=== PATIENT | female | born 1975 | race Two or more races ===

== ENCOUNTER 2024-06-05 14:46 | Emergency (ER) | payer BC, OTHER, SELFPAY ==
[2024-06-05 14:50] VITALS: BP 135/76
[2024-06-05] MEDS: NSS 1000 IV (16:42)
[2024-06-05 16:44] VITALS: BMI 29.3
[2024-06-05 16:55] LABS: % Basophils 0.7 % (0-2); % Immature Granulocytes 0.2 % (0-0.5); % Lymphocytes 24.3 % (20.5-51.1); % Monocytes 8.6 % (1.7-9.3); % Neutrophils 59.2 % (42.2-75.2); Absolute Basophils 0.1 10^3/uL (0-0.2); Absolute Eosinophils 0.7 10^3/uL (0-0.7); Absolute Lymphocytes 2.3 10^3/uL (1.2-3.4); Absolute Monocytes 0.8 10^3/uL (0.1-0.6); Absolute Neutrophils 5.6 10^3/uL (1.4-6.5); Hematocrit 38.9 % (37.0-47.0); Hemoglobin 13.2 g/dL (12.0-16.0); Mean Corp Hgb Conc. 33.9 g/dL (33.0-37.0); Mean Corpuscular Hgb 32.5 pg (27.0-31.0); Mean Corpuscular Volume 95.8 fL (81.0-99.0); Mean Platelet Volume 11.6 fL (7.4-10.4); Nucleated Red Blood Cells % 0 %; Platelet Count 220 10^3/uL (130-400); Red Blood Cell Count 4.06 10^6/uL (4.20-5.40); Red Cell Dist. Width 13.2 % (11.5-14.5); White Blood Cell Count 9.5 10^3/uL (4.8-10.8)
[2024-06-05 17:01] VITALS: BP 117/63
[2024-06-05 17:11] LABS: ALT (SGPT) 18 U/L (0-35); AST (SGOT) 25 U/L (14-36); Albumin 4.3 g/dl (3.5-5.0); Alkaline Phosphatase 59 U/L (38-126); Blood Urea Nitrogen 15 mg/dl (7-17); Calcium 9.6 mg/dl (8.4-10.2); Carbon Dioxide 28 mmol/L (22-30); Chloride 105 mmol/L (98-107); Estimated Creatinine Clearance 118 ml/min; Glucose 102 mg/dl (70-99); Potassium 4.2 mmol/L (3.5-5.1); Sodium 139 mmol/L (135-145); Total Bilirubin 0.4 mg/dl (0.2-1.3); Total Protein 6.7 g/dl (6.3-8.2); eGFR > 60.00
[2024-06-05 17:46] VITALS: BP 112/71
--- NOTE | 2024-06-05 18:47 | ED.GENMED ---
History of Present Illness
General
Chief Complaint: Dizziness
Source: patient and spouse
Exam Limitations: none
Time Seen by Provider: 06/05/24 15:38
Nursing documentation reviewed up to this point in time: agreed with
History of Present Illness
History of Present Illness:
48-year-old female past medical history of MS presenting to the emergency department today with concerns of lightheadedness while at work felt like she was going to pass out while standing up she claims that the AC is not working and it was very
hot. She was sweating. She felt some nausea no vomiting no chest pain no shortness of breath she did have a brief episode during the lightheadedness where it felt that her heart rate was increasing..
Past History
Past History
ED Past Medical History: None; Negative Asthma, HTN, Hypercholesterolemia or NIDDM
ED Past Surgical History: Cholecystectomy
Social History
Tobacco: Other (Hookah)
Alcohol: None
Personal:
Living: with family
Employment: Employed
Review of Systems
Review of Systems
Allergies reviewed?: Yes
All Other Systems: ROS reviewed and negative except as documented in HPI and ROS
Phy Exam
Physical Exam
Physical Exam:
GENERAL: Alert , in no apparent distress
EYE: pupils equal and reactive
NECK: Supple, no significant adenopathy.
ENT: o/p clr, mmm.
CARDIAC: Regular rate and rhythm .
LUNGS: Clear breath sounds bilaterally, no acute respiratory distress, no wheezes/rales/rhonchi
ABDOMEN: Soft, without focal tenderness, no r/g, no cvat
NEUROLOGICAL: Alert and oriented, no focal neuro deficits
SKIN: Warm and dry, skin intact.
MUSCULOSKELETAL: No edema, well perfused.
PSYCH: Normal and appropriate interaction.
Course
Orders/Labs/Results
Orders:
Orders
06/05/24 14:52
Electrocardiogram (*1) Urgent
Reason for Study: Vertigo / Dizzy
EKG- Treatment ONCE
06/05/24 16:10
Urinalysis Reflex To Culture Urgent
0.9% Sodium Chloride 1000 ml [Nss] 1,000 ml IV BOLUS
06/05/24 16:41
Complete Blood Count/With Diff Urgent
Comprehensive Metabolic Panel Urgent
Abnormal Lab Results
06/05/24
16:41
RBC 4.06 L 10^6/uL
(4.20-5.40)
MCH 32.5 H pg
(27.0-31.0)
MPV 11.6 H fL
(7.4-10.4)
Absolute Monos (auto) 0.8 H 10^3/uL
(0.1-0.6)
Eosinophils % 7.0 H %
(0-6)
Glucose 102 H mg/dl
(70-99)
06/05/24 16:41
06/05/24 16:41
Vital Signs
Initial and Last Documented VS:
Initial Vital Signs
Temp Pulse Resp BP Pulse Ox
98.0 F 72 16 135/76 98
06/05/24 14:50 06/05/24 14:50 06/05/24 14:50 06/05/24 14:50 06/05/24 14:50
Last Documented Vital Signs
Temp Pulse Resp BP Pulse Ox
98.0 F 69 21 112/71 98
06/05/24 14:50 06/05/24 17:46 06/05/24 17:46 06/05/24 17:46 06/05/24 14:50
MDM/Problems Addressed
MDM/Problems Addressed:
48-year-old female presenting to the emergency department today with concerns of lightheadedness when working in a very hot room today. [place] better after sitting down and drinking some fluids. She did feel that her heart rate was elevated at the
time. She does have a loop recorder in place this was interrogated and she had a brief episode of sinus tachycardia in the 120s. No arrhythmia. On arrival here vital signs are normal patient well-appearing no acute distress normal neurologic
evaluation. Labs were obtained without acute abnormalities. Asymptomatic for multiple hours here. Stable for discharge.
*Critical Care Note
Total Time (30-74mins, 75-104mins- exclusive of procedures): Not Applicable
ED Attending Note
-
Portions of this chart may have been created with voice recognition software.� Occasional wrong word or��sound alike� substitutions may have occurred due to the inherent limitations of voice recognition software.
Discharge Plan
Departure
Patient Disposition: Home (Routine Discharge)
Date of Disposition: 06/05/24
Time of Disposition: 18:49
Patient with high blood pressure during this ER visit?: No
Condition: Good
Covid-19: Not Applicable
Discharge Problem:
Pre-syncope
Instructions: Near Fainting (DC)
Referrals:
Dione Ghotra MD [Family Provider] -
Activity Restrictions/Additional Instructions:
You came to the emergency department today after an episode of lightheadedness. Please follow closely with your primary care doctor. Return to the emergency department for any worsening, new or concerning symptoms.
Interventions
Interventions:
*Risk Screen - Suicide Last Done: 06/05/24 16:43
*General Assessment Last Done: 06/05/24 16:43
*Neglect/Abuse Screening Last Done: 06/05/24 16:43
ED- Fall Risk Assessment Last Done: 06/05/24 16:59
*ED COVID-19 Vaccine History Last Done: 06/05/24 16:43
ED- Cardiac Assessment Last Done: 06/05/24 16:59
Discharge Date and Time
Print Language: [place]
== END 2024-06-05 19:09 | disposition home or self-care (01) ==
LOC: EMR 14:46
PROVIDERS: Physician Assistant; EMERGENCY PHYSICIAN Student in an Organized Health Care Education/Training Program; FAMILY PHYSICIAN Family Medicine
DX: R55 Syncope and collapse (principal); G35 Multiple sclerosis; Z90.49 Acquired absence of other specified parts of digestive tract
CPT/HCPCS: 99283; 80053; 85025; 93005

== ENCOUNTER 2024-08-29 12:27 | Emergency (ER) | payer BC, OTHER, SELFPAY ==
[2024-08-29 12:41] VITALS: BP 141/91
--- NOTE | 2024-08-29 12:43 | ED.GENMED ---
ED Provider Triage
<Himanshu Longoria PA-C - Last Filed: 08/29/24 12:44>
-
Patient seen by provider in Triage?: Seen in Triage
Attestation: A medical screening examination has been initiated by a qualified medical provider. Based on the assessment performed at this time, it has been determined that an emergent medical condition may exist and the patient has been informed
that further medical evaluation and possible additional diagnostic testing may be needed.
HPI: 48-year-old female presents for evaluation of nontraumatic left hand and forearm discomfort. Describes a 'cold sensation' to the left thumb and proximal forearm. Denies any injuries, works at [employer]. History of factor V Leiden, denies any
arm edema
GENERAL: Alert , in no apparent distress
EYE: No visual abnormalities.
NECK: Trachea midline
ENT: No visible abnormalities.
LUNGS: No acute respiratory distress
NEUROLOGICAL: Alert and oriented
SKIN: Skin intact. No visible changes.
MUSCULOSKELETAL: Moving extremities normally
PSYCH: Normal and appropriate interaction.
A/P: Nontraumatic left hand pain. Does not fit a description of carpal tunnel. No edema to suggest DVT. Will obtain hand x-rays and reassess
This is a medical evaluation conducted in person to initiate diagnostic evaluation and provide initial therapeutics. Please see further documentation by the treating clinician.
History of Present Illness
<Himanshu Longoria PA-C - Last Filed: 08/29/24 12:44>
General
Chief Complaint: Musculo-Skeletal Complaint
Time Seen by Provider: 08/29/24 13:53
<Devonte Shannon Jr., PA-C - Last Filed: 08/29/24 18:08>
General
Source: patient
Exam Limitations: none
Nursing documentation reviewed up to this point in time: agreed with
History of Present Illness
History of Present Illness:
48-year-old female past medical history of MS presenting to the emergency department today with concerns of left hand pain starting this morning upon awakening. Denies any additional symptoms otherwise. Denies any numbness or weakness but has
noticed a hot and cold feeling intermittently. Denies any known injuries or repetitious motion
Past History
<Himanshu Longoria PA-C - Last Filed: 08/29/24 12:44>
Past History
ED Past Medical History: None; Negative Asthma, HTN, Hypercholesterolemia or NIDDM
ED Past Surgical History: Cholecystectomy
Social History
Tobacco: Other (Hookah)
Alcohol: None
Personal:
Living: with family
Employment: Employed
Review of Systems
<Devonte Shannon Jr., PA-C - Last Filed: 08/29/24 18:08>
Review of Systems
Allergies reviewed?: Yes
All Other Systems: ROS reviewed and negative except as documented in HPI and ROS
Phy Exam
<Devonte Shannon Jr., PA-C - Last Filed: 08/29/24 18:08>
Physical Exam
Physical Exam:
GENERAL: Alert , in no apparent distress
EYE: pupils equal and reactive
NECK: Supple, no significant adenopathy.
ENT: o/p clr, mmm.
CARDIAC: Regular rate and rhythm .
LUNGS: Clear breath sounds bilaterally, no acute respiratory distress, no wheezes/rales/rhonchi
ABDOMEN: Soft, without focal tenderness, no r/g, no cvat
NEUROLOGICAL: Alert and oriented, no focal neuro deficits
SKIN: Warm and dry, skin intact.
MUSCULOSKELETAL: No redness or warmth some pain with motion of the thumb good range of motion of the wrist normal cap refill normal radial and ulnar pulses no edema, well perfused.
PSYCH: Normal and appropriate interaction.
Course
<SIXTO Flowers Last Filed: 08/29/24 12:44>
Orders/Labs/Results
Orders:
Orders
08/29/24 12:42
CR Hand - Left Min 3 Views Urgent
Comment:
Reason For Exam: left hand pain
08/29/24 14:15
Venous Doppler Upr Ext Left [US Periph Venous UPPER Ext LT] Urgent
Comment:
Reason For Exam: arm pain swellling factor 5 leiden
08/29/24 18:04
Splints/Slings/Crut- Treatment ONCE
Location: Left
Comment: Thumb spica
Vital Signs
Initial and Last Documented VS:
Initial Vital Signs
Pulse Resp BP Pulse Ox
82 18 141/91 99
08/29/24 12:41 08/29/24 12:41 08/29/24 12:41 08/29/24 12:41
Last Documented Vital Signs
Pulse Resp BP Pulse Ox
82 18 141/91 99
08/29/24 12:41 08/29/24 12:41 08/29/24 12:41 08/29/24 12:41
<Devonte Shannon Jr., PA-C - Last Filed: 08/29/24 18:08>
Orders/Labs/Results
Orders:
Orders
08/29/24 12:42
CR Hand - Left Min 3 Views Urgent
Comment:
Reason For Exam: left hand pain
08/29/24 14:15
Venous Doppler Upr Ext Left [US Periph Venous UPPER Ext LT] Urgent
Comment:
Reason For Exam: arm pain swellling factor 5 leiden
08/29/24 18:04
Splints/Slings/Crut- Treatment ONCE
Location: Left
Comment: Thumb spica
Vital Signs
Initial and Last Documented VS:
Initial Vital Signs
Pulse Resp BP Pulse Ox
82 18 141/91 99
08/29/24 12:41 08/29/24 12:41 08/29/24 12:41 10/08/24 12:41
Last Documented Vital Signs
Pulse Resp BP Pulse Ox
82 18 141/91 99
08/29/24 12:41 08/29/24 12:41 08/29/24 12:41 08/29/24 12:41
<Devonte Shannon Jr., PA-C - Last Filed: 08/29/24 18:08>
MDM/Problems Addressed
MDM/Problems Addressed:
48-year-old female presenting to the emergency department today with concerns of left hand and thumb discomfort upon awakening this morning. No redness or warmth no signs of infection x-ray without signs of acute abnormalities patient apparently
does have a history of factor V Leiden and ultrasound was performed without signs of DVT. Patient hand is well-perfused with normal distal pulses and cap refill. The possibility of a minor MS related issue was brought up she was advised very close
follow-up with her neurologist for further assessment in this regard. Otherwise she may have just sprained her thumb in which case she was given a thumb given strict return precautions.
<Devonte Shannon Jr., PA-C - Last Filed: 08/29/24 18:08>
*Critical Care Note
Total Time (30-74mins, 75-104mins- exclusive of procedures): Not Applicable
ED Attending Note
<Himanshu Longoria PA-C - Last Filed: 08/29/24 12:44>
-
Portions of this chart may have been created with voice recognition software.� Occasional wrong word or��sound alike� substitutions may have occurred due to the inherent limitations of voice recognition software.
Discharge Plan
Departure
Patient Disposition: Home (Routine Discharge)
Date of Disposition: 08/29/24
Time of Disposition: 18:06
Patient with high blood pressure during this ER visit?: No
Condition: Good
Covid-19: Not Applicable
Discharge Problem:
Injury of thumb, left
Instructions: Sprain (DC)
Referrals:
Dione Ghotra MD [Family Provider] -
Stand Alone Forms: Return to Work
Activity Restrictions/Additional Instructions:
You came to the emergency department today with concern of hand and thumb pain. You had a normal x-ray and ultrasound. Please help closely with your neurologist and primary care doctor. Please rest ice compress and elevate and to return for any
worsening, new or concerning symptoms.
Interventions
Interventions:
*Risk Screen - Suicide Last Done: 08/29/24 12:41
*General Assessment Last Done: 08/29/24 14:01
*Neglect/Abuse Screening Last Done: 08/29/24 14:01
*ED COVID-19 Vaccine History Last Done: 08/29/24 14:01
ED-Musculoskeletal Assessment Last Done: 08/29/24 14:01
Discharge Date and Time
Print Language: SERBIAN
[2024-08-29 18:52] VITALS: BP 141/91
== END 2024-08-29 18:54 | disposition home or self-care (01) ==
LOC: EMR 12:27
PROVIDERS: EMERGENCY PHYSICIAN Emergency Medicine; FAMILY PHYSICIAN Family Medicine
DX: S69.92XA Unspecified injury of left wrist, hand and finger(s), initial encounter (principal); X58.XXXA Exposure to other specified factors, initial encounter
CPT/HCPCS: 99284; 29125; 73130; 93971

== ENCOUNTER 2025-10-22 18:42 | Emergency (ER) | payer BC, OTHER, SELFPAY ==
[2025-10-22 18:52] VITALS: BP 157/79
[2025-10-22 19:32] LABS: COVID-19 Antigen Negative (Negative)
[2025-10-22 20:32] VITALS: BMI 31.6
[2025-10-22 20:50] LABS: Hematocrit 42.4 % (37.0-47.0); Hemoglobin 14.1 g/dL (12.0-16.0); Mean Corp Hgb Conc. 33.3 g/dL (33.0-37.0); Mean Corpuscular Volume 95.7 fL (81.0-99.0); Nucleated Red Blood Cells % 0 %; Platelet Count 289 10^3/uL (130-400); Red Cell Dist. Width 13.4 % (11.5-14.5)
--- NOTE | 2025-10-22 20:54 | ED.GENMED ---
History of Present Illness
General
Chief Complaint: Breathing Problem
Source: patient
Exam Limitations: none
Time Seen by Provider: 10/22/25 20:34
Nursing documentation reviewed up to this point in time: agreed with
History of Present Illness
History of Present Illness:
Patient is a 49-year-old female with history of multiple sclerosis, factor V Leiden who presents to the emergency department for evaluation of cough and shortness of breath. Patient that she has had a few days of cough and now describes a pain
across her chest, worse with inspiration. She reports feeling as if she cannot take a deep due to pain. She describes shortness of breath occurring both at rest and with exertion. She denies any fever. No exertional chest pain. No hemoptysis.
No lower leg swelling or pain.
Of note�patient does report that numerous of her coworkers are sick.
She does have a history of asthma and has been using her inhalers at home. She states that she comes a few weeks ago and was seen in urgent care where they prescribed her a course of steroids. She did not take steroids at that time however started
this course yesterday due to her worsening symptoms.
She denies any recent travel or recent surgeries. She is not on any oral anticoagulation.
Past History
Past History
ED Past Medical History: None; Negative Asthma, HTN, Hypercholesterolemia or NIDDM
ED Past Surgical History: Cholecystectomy
Social History
Tobacco: Other (Hookah)
Alcohol: None
Personal:
Living: with family
Employment: Employed
Review of Systems
Review of Systems
Allergies reviewed?: Yes
All Other Systems: ROS reviewed and negative except as documented in HPI and ROS
Phy Exam
Physical Exam
Physical Exam:
Vitals: Hypertensive, otherwise vital signs stable. Afebrile
General: Patient is well appearing, no acute distress. Nontoxic appearing
Skin: Warm and dry, no rashes or lesions
Head: Normocephalic, atraumatic
Eyes: Sclera nonicteric.
Throat: Protecting airway
Neck: Normal ROM, no cervical spine tenderness, no meningismus
Cardiac: Regular rate and rhythm, no murmurs.
Pulm: Normal respiratory effort. Lungs clear with mild expiratory wheeze bilaterally. Frequent cough
Abdomen: No abdominal tenderness.
Extremities: No evidence of cyanosis or edema. No tenderness of calves bilaterally
Neuro: AAOx3. Grossly intact.
Psychiatric: Normal affect.
Scores
Heart Failure Risk
Heart Failure Risk Score: Not Applicable
Course
Orders/Labs/Results
Orders:
Orders
10/22/25 18:47
Electrocardiogram (*1) Urgent
Reason for Study: Shortness of Breath
EKG- Treatment ONCE
10/22/25 18:55
CR Chest - 2 Views Urgent
Comment:
Reason For Exam: chest tightness
10/22/25 18:56
Test Result ONCE
10/22/25 19:06
COVID-19 Antigen Urgent
Source: Nasal Swab
Influenza A+B Rapid Molecular Urgent
ADAM Source: Nasal Swab
Specimen Description:
10/22/25 20:32
Complete Blood Count/With Diff Urgent
Comprehensive Metabolic Panel Urgent
D-Dimer Urgent
Comment: ADD ON
HCG, Serum Qualitative Screen Urgent
PTT Urgent
Troponin I Urgent
10/22/25 20:51
Add On- LAB Urgent
Tests Added?: d-dimer
Ipratropium/Albuterol Sulfate [Duoneb] 3 ml INH R NOW STA
10/22/25 22:10
Ipratropium/Albuterol Sulfate [Duoneb] 3 ml INH R NOW STA
10/22/25 23:15
Ketorolac [Toradol] 15 mg IV NOW STA
Abnormal Lab Results
10/22/25
20:32
WBC 12.6 H 10^3/uL
(4.8-10.8)
MCH 31.8 H pg
(27.0-31.0)
MPV 11.5 H fL
(7.4-10.4)
Absolute Neuts (auto) 9.5 H 10^3/uL
(1.4-6.5)
Absolute Monos (auto) 1.3 H 10^3/uL
(0.1-0.6)
Neutrophils % 75.7 H %
(42.2-75.2)
Lymphocytes % 12.3 L %
(20.5-51.1)
Monocytes % 10.3 H %
(1.7-9.3)
Glucose 111 H mg/dl
(70-99)
10/22/25 20:32
10/22/25 20:32
Vital Signs
Initial and Last Documented VS:
Initial Vital Signs
Temp Pulse Resp BP Pulse Ox
98.3 F 94 16 157/79 98
10/22/25 18:52 10/22/25 18:52 10/22/25 18:52 10/22/25 18:52 10/22/25 18:52
Last Documented Vital Signs
Temp Pulse Resp BP Pulse Ox
98.3 F 69 16 157/79 100
10/22/25 18:52 10/22/25 20:39 10/22/25 20:39 10/22/25 18:52 10/22/25 20:55
MDM/Problems Addressed
Differential Diagnosis Includes:
Not limited to: Asthma exacerbation, viral bronchitis, pneumonia, costochondritis, pleurisy, pulmonary embolism, etc.
MDM/Problems Addressed:
49-year-old female w/ history as documented presenting with pleuritic chest discomfort and cough for the past few days. No fever or hemoptysis. No exertional chest pain. No lower like pain/swelling. Multiple people at work with upper respiration
symptoms.
She states that she had similar symptoms a few weeks ago which resolved briefly although returned.
Patient has stable vital signs on arrival. On exam, she appears in no respiratory distress. Lungs clear with mild expiratory wheeze bilaterally and frequent cough. Mild reproducible chest wall tenderness noted without any obvious rash. No clinical
evidence of DVT on exam.
Prior to my assessment, labs were sent which reveal a mild leukocytosis. Possible reactive as she is currently taking prednisone. Chemistry unremarkable. Troponin is undetectable. Chest x-ray shows no acute findings.
Clinical picture consistent with mild asthma exacerbation likely secondary to viral bronchitis. No evidence of pneumonia on x-ray. Given history of Factor V Leiden� will screen with d-dimer. Will give duoneb and reassess.
Update: D-dimer negative. Patient reports improvement in symptoms following duonebs. Suspect chest discomfort likely due to costochondritis from frequent coughing.
She is not hypoxic. Feel she is stable for discharge home with continued management. Patient has multiple inhalers at home and a course of prednisone as prescribed by urgent care that she will continue. Will send a script for doxycycline given
duration of symptoms to cover for possible atypical infectious process. Very strict return precautions discussed. Patient comfortable with plan.
Chronic conditions affecting care:
Asthma, factor V Leiden
Acute Exacerbation and/or Progression of Chronic Illness:
Acute asthma exacerbation
*Radiology
Radiology exam reviewed: preliminary read by ED provider (Chest x-ray reviewed by me-no acute abnormality) and radiology read reviewed
*Pulse Oximetry
SaO2: 100
Oxygen Mode of Delivery: Room air
Patient hypoxic: no
*EKG
Interpreted by ED Provider?: Yes
EKG Intrepretation Date: 10/22/25
Interpretation: normal
Comparison EKG: no changes
Heart Rate: 79
Rate: normal
Rhythm: sinus
[place]: normal axis
Interval: normal QT interval
QRS Pattern: normal QRS
Ischemia: no ischemia
*Dye Tub Tender Interpretation
Rate: normal
Interpretation: normal
Heart Rate: 92
Rhythm: sinus
*Critical Care Note
Total Time (30-74mins, 75-104mins- exclusive of procedures): Not Applicable
ED Attending Note
-
Portions of this chart may have been created with voice recognition software.� Occasional wrong word or��sound alike� substitutions may have occurred due to the inherent limitations of voice recognition software.
Discharge Plan
Departure
Patient Disposition: Home (Routine Discharge)
Date of Disposition: 10/22/25
Time of Disposition: 23:17
Patient with high blood pressure during this ER visit?: Yes
Condition: Good
Covid-19: Negative COVID-19
Discharge Problem:
Acute bronchitis, Asthma exacerbation
Instructions: Asthma, Adult (DC), Acute Bronchitis, Adult (DC), BLOOD PRESSURE
Prescriptions:
New
doxycycline hyclate 100 mg tablet
100 mg PO BID 5 Days Qty: 10 0RF
Referrals:
Dione Ghotra MD [Family Provider, Family Practice] - Follow up in 5-7 days
Stand Alone Forms: Return to Work
Activity Restrictions/Additional Instructions:
RETURN TO THE EMERGENCY DEPARTMENT ANY FEVER, CHEST PAIN OR SHORTNESS OF BREATH/DIFFICULTY BREATHING, COUGHING UP BLOOD, WORSENING IN CURRENT SYMPTOMS, OR ANY OTHER CONCERNS
- As discussed, I suspect your symptoms are likely secondary to an asthma exacerbation secondary to viral bronchitis. Please continue prescription for prednisone as prescribed by the urgent care to complete a 5-day course. You should also continue
to use your inhalers as prescribed.
- A prescription for doxycycline has been sent to your pharmacy which you can start if symptoms persist
- You can take Motrin and/or Tylenol as needed for discomfort.
- Please follow-up with your primary care provider for further evaluation/management later this week to ensure that your symptoms are improving
Monitor your symptoms closely and return to the emerged ferment with any acute worsening/new symptoms or any other concerns
Interventions
Interventions:
*Risk Screen - Suicide Last Done: 10/23/25 00:14
*General Assessment Last Done: 10/22/25 18:52
*Neglect/Abuse Screening Last Done: 10/22/25 18:52
*ED COVID-19 Vaccine History Last Done: 10/22/25 20:39
*ED Influenza Vaccine History Last Done: 10/22/25 20:39
[facility] Fall Risk Assessment Tool Last Done: 10/22/25 20:39
*Nursing Disposition Last Done: 10/23/25 00:14
ED- Cardiac Assessment Last Done: 10/22/25 22:00
ED- Pulmonary Assessment Last Done: 10/22/25 22:00
Discharge Date and Time
Discharge Date/Time: 10/23/25 00:17
Print Language: [id number]
[2025-10-22 21:01] LABS: APTT 27.4 Sec (23.4-35.0)
[2025-10-22 21:04] LABS: D-Dimer < 0.27 ug/mlFEU (0.00-0.50)
[2025-10-22] MEDS: DUONEB 3 ML INH ×2 (21:07→22:26)
[2025-10-22 21:16] LABS: HCG, Serum Qualitative Screen Negative
[2025-10-22 21:20] LABS: ALT (SGPT) 33 U/L (0-35); AST (SGOT) 30 U/L (14-36); Albumin 4.7 g/dl (3.5-5.0); Alkaline Phosphatase 54 U/L (38-126); Blood Urea Nitrogen 16 mg/dl (7-17); Calcium 9.7 mg/dl (8.4-10.2); Carbon Dioxide 29 mmol/L (22-30); Chloride 102 mmol/L (98-107); Estimated Creatinine Clearance 117 ml/min; Glucose 111 mg/dl (70-99); Potassium 4.5 mmol/L (3.5-5.1); Sodium 138 mmol/L (135-145); Total Protein 7.5 g/dl (6.3-8.2); Troponin I < 0.012 ng/ml; eGFR > 60.00
[2025-10-22] MEDS: TORADOL 15 MG IV (23:30)
== END 2025-10-23 00:17 | disposition home or self-care (01) ==
LOC: EMR 18:42
PROVIDERS: Emergency Medicine; EMERGENCY PHYSICIAN Emergency Medicine; FAMILY PHYSICIAN Family Medicine
DX: J20.9 Acute bronchitis, unspecified (principal); J45.901 Unspecified asthma with (acute) exacerbation; G35.D Multiple sclerosis, unspecified; D68.51 Activated protein C resistance; Z11.52 Encounter for screening for COVID-19
CPT/HCPCS: 99285; 96374; 94640; 71046; 80053; 84484; 84703; 85025; 85379; 85730; 87502; 87811; 93005

== ENCOUNTER 2025-11-18 06:22 | Emergency (ER) | payer BC, OTHER, SELFPAY ==
[2025-11-18 06:25] VITALS: BP 117/78
[2025-11-18 07:35] VITALS: BP 129/76
--- NOTE | 2025-11-18 07:35 | ED.GENMED ---
History of Present Illness
General
Chief Complaint: Fever
Source: patient
Exam Limitations: none
Time Seen by Provider: 11/18/25 07:02
Nursing documentation reviewed up to this point in time: agreed with except (See below)
History of Present Illness
History of Present Illness:
49-year-old female with a past medical history of asthma, MS who presents to the emergency room for evaluation of flulike illness. Patient reports onset of symptoms around 1 AM and have been constant since. She reports generalized myalgias
particularly in the legs. She reports fever and chills�she says she took Tylenol and ibuprofen at 1 AM (nursing note erroneously says that it was taken at 3 AM). She says that she has had a cough nonproductive. She has nasal congestion. She
reports mild headache. She has not had any vomiting or diarrhea. Denies chest pain, shortness of breath, wheezing. Denies abdominal pain. She makes note that she was around a friend a few days ago who was positive for influenza.
Past History
Past History
ED Past Medical History: None; Negative Asthma, HTN, Hypercholesterolemia or NIDDM
ED Past Surgical History: Cholecystectomy
Social History
Tobacco: Other (Hookah)
Alcohol: None
Personal:
Living: with family
Employment: Employed
Review of Systems
Review of Systems
All Other Systems: ROS reviewed and negative except as documented in HPI and ROS
Constitutional: Reports fever, fatigue and chills
EENT: Reports sore throat and other (Nasal congestion)
Respiratory: Reports cough; Denies trouble breathing
Cardiac: Denies chest pain
ABD/GI: Denies abdominal pain, nausea, vomiting or diarrhea
: Denies flank pain
Musculoskeletal: Reports muscle pain; Denies neck pain
Neurological: Reports headache; Denies dizzy
Phy Exam
Physical Exam
Physical Exam:
General: Awake, alert, oriented x3; no acute distress
Head: Normocephalic, atraumatic
Eyes: Conjunctiva normal, pupils equal round reactive to light bilaterally
Throat: Airway intact, handling secretions, somewhat dry mucous membranes
Neck: Trachea midline, supple without meningismus
Lungs: Clear to auscultation bilaterally, no wheezing, rales, rhonchi
Heart: Tachycardia with regular rhythm, no murmurs, gallops, or rubs
Abd: Soft, non distended, nontender
Neuro: Grossly intact
Skin: Warm and dry
Extremities: Warm and well-perfused, not focally tender
Scores
Heart Failure Risk
Heart Failure Risk Score: Not Applicable
Heart Score for Chest Pain Patients
STEMI patient?: Not applicable
Withdrawal Assessment of Alcohol
Withdrawal Assessment Completed?: Not applicable
Sepsis
Sepsis Screening
Sepsis Assessment: Sepsis Ruled Out
Sepsis Screen
Sepsis Screen: Sepsis Ruled Out
Date: 11/18/25
Time: 08:12
Course
Orders/Labs/Results
Orders:
Orders
11/18/25 07:34
0.9% Sodium Chloride 1000 ml [Nss] 1,000 ml IV BOLUS
Ketorolac [Toradol] 15 mg IV NOW STA
11/18/25 07:37
COVID-19 Antigen Urgent
Source: Nasal Swab
CPK [Creatine Phosphokinase] Urgent
Complete Blood Count/With Diff Urgent
Comprehensive Metabolic Panel Urgent
Influenza A+B Rapid Molecular Urgent
ADAM Source: Nasal Swab
Specimen Description:
11/18/25 08:10
Oseltamivir Phosphate [Tamiflu] 75 mg PO NOW STA
Abnormal Lab Results
11/18/25
07:37
MCH 31.6 H pg
(27.0-31.0)
MPV 11.0 H fL
(7.4-10.4)
Absolute Lymphs (auto) 0.4 L 10^3/uL
(1.2-3.4)
Absolute Monos (auto) 0.9 H 10^3/uL
(0.1-0.6)
Neutrophils % 77.3 H %
(42.2-75.2)
Lymphocytes % 6.3 L %
(20.5-51.1)
Monocytes % 13.6 H %
(1.7-9.3)
Glucose 101 H mg/dl
(70-99)
Creatine Kinase < 20 L U/L
(30-135)
11/18/25 07:37
11/18/25 07:37
Vital Signs
Initial and Last Documented VS:
Initial Vital Signs
Temp Pulse Resp BP Pulse Ox
38.2 C H 105 24 117/78 100
11/18/25 06:25 11/18/25 06:25 11/18/25 06:25 11/18/25 06:25 11/18/25 06:25
Last Documented Vital Signs
Temp Pulse Resp BP Pulse Ox
37.6 C 94 16 129/76 100
11/18/25 07:03 11/18/25 07:45 11/18/25 07:45 11/18/25 07:35 11/18/25 07:52
MDM/Problems Addressed
Differential Diagnosis Includes:
Viral syndrome, flu, COVID; no wheezing to suggest asthma exacerbation
MDM/Problems Addressed:
49-year-old female with history as noted presents with flulike illness after exposure to a friend who was positive for the flu. Mild tachycardia with mild tachypnea but no evidence of respiratory distress; she has mild fever which is likely driving
these. Physical exam as noted. Check basic labs, CPK, swab for COVID and flu. Will provide fluids and Toradol. Reassess after the above.
Labs reviewed: CBC and CMP no clinically significant abnormalities. CPK not elevated. She is positive for influenza today which accounts for her symptoms. Vitals improved on reassessment, clinically patient reports symptomatic improvement.
Stable for discharge with supportive care. She is within window of benefit for Tamiflu which we will prescribe. Spoke about follow-up plan and return precautions and all questions answered.
Chronic conditions affecting care:
Asthma
*Pulse Oximetry
SaO2: 100
Oxygen Mode of Delivery: Room air
Patient hypoxic: no (100%)
*Critical Care Note
Total Time (30-74mins, 75-104mins- exclusive of procedures): Not Applicable
Data Reviewed
Source: patient and family
ED Attending Note
-
Portions of this chart may have been created with voice recognition software.� Occasional wrong word or��sound alike� substitutions may have occurred due to the inherent limitations of voice recognition software.
Discharge Plan
Departure
Patient Disposition: Home (Routine Discharge)
Date of Disposition: 11/18/25
Time of Disposition: 08:12
Patient with high blood pressure during this ER visit?: No
Discharge Problem:
Influenza A
Instructions: Viral Syndrome (DC)
Prescriptions:
New
oseltamivir [Tamiflu] 75 mg capsule
75 mg PO BID Qty: 10 0RF
Activity Restrictions/Additional Instructions:
You were diagnosed with influenza in the emergency room today. You should drink plenty of fluids. You should try to keep your diet bland to prevent any nausea or vomiting. You should take medications to help control your fever and bodyaches; you
can take the following medications:
Tylenol 1000 mg every 6 hours as needed
Ibuprofen 400 mg every 6 hours as needed
You are also prescribed a medication called Tamiflu to help treat your influenza. If your symptoms are worsening please return to the ER to be reassessed. Otherwise you should follow-up with your primary doctor next week.
Thank you for visiting the Emergency Department at [facility].
1. Please schedule a follow up appointment as directed. Call first thing tomorrow morning to make an appointment.
2. If indicated, please take your medications as instructed and indicated on discharge paperwork.
3. If any of your symptoms do not improve, or persist, or become more severe within 6-12 hours, please return to the emergency department for further care.
4. Please return to the emergency department if you develop a headache, neck pain/stiffness, fever greater than 100.4F, chest pain, shortness of breath, persistent nausea, vomiting, slurred speech, difficulty walking, numbness/tingling, weakness,
signs of infection or any other symptoms that are worrisome to you.
Please call [phone] if you have any questions.
Interventions
Interventions:
*General Assessment Last Done: 11/18/25 06:25
*Neglect/Abuse Screening Last Done: 11/18/25 06:25
[facility] Risk Assessment Tool Last Done: 11/18/25 07:58
*Risk Screen - Suicide (C-SSRS) Last Done: 11/18/25 06:25
ED- Neurological Assessment Last Done: 11/18/25 07:52
ED-Skin Assessment Last Done: 11/18/25 07:52
Discharge Date and Time
Print Language: [id number]
[2025-11-18] MEDS: TORADOL 15 MG IV (07:44)
[2025-11-18] MEDS: NSS 1000 IV (07:45)
[2025-11-18 07:49] LABS: Hematocrit 40.8 % (37.0-47.0); Hemoglobin 13.9 g/dL (12.0-16.0); Mean Corp Hgb Conc. 34.1 g/dL (33.0-37.0); Mean Corpuscular Volume 92.7 fL (81.0-99.0); Nucleated Red Blood Cells % 0 %; Platelet Count 212 10^3/uL (130-400); Red Cell Dist. Width 13.2 % (11.5-14.5)
[2025-11-18 08:00] VITALS: BP 108/71
[2025-11-18 08:05] LABS: ALT (SGPT) 32 U/L (0-35); AST (SGOT) 32 U/L (14-36); Albumin 4.3 g/dl (3.5-5.0); Alkaline Phosphatase 71 U/L (38-126); Blood Urea Nitrogen 7 mg/dl (7-17); Calcium 9.5 mg/dl (8.4-10.2); Carbon Dioxide 24 mmol/L (22-30); Chloride 103 mmol/L (98-107); Glucose 101 mg/dl (70-99); Potassium 4.1 mmol/L (3.5-5.1); Sodium 135 mmol/L (135-145); Total Protein 7.1 g/dl (6.3-8.2); eGFR > 60.00
[2025-11-18 08:08] LABS: COVID-19 Antigen Negative (Negative)
[2025-11-18] MEDS: TAMIFLU 75 MG PO (08:21)
== END 2025-11-18 08:33 | disposition home or self-care (01) ==
LOC: EMR 06:22
PROVIDERS: EMERGENCY PHYSICIAN Emergency Medicine; FAMILY PHYSICIAN Family Medicine
DX: J10.1 Influenza due to other identified influenza virus with other respiratory manifestations (principal); J45.909 Unspecified asthma, uncomplicated; G35.D Multiple sclerosis, unspecified
CPT/HCPCS: 99284; 96374; 96361; 80053; 82550; 85025; 87502; 87811